=== PATIENT | male | born 1965 ===

== ENCOUNTER → 2019-02-01 | Day surgery (SDC) | payer OTHER ==
[~2019-02-01] MED LIST: CEFTRIAXONE SOD 1 GM/NS 50 ML 50 ML IV ONE; DEXAMETHASONE SOD PHOS INJ 4 MG/ML VIAL ONE; FENTANYL CITRATE/PF 100MCG/2 ML INJ ONE; IOPAMIDOL 610MG/1ML 300 MG/ML VIAL IV ONE; LIDOCAINE HCL 2% LOCAL INJ 5 ML SDV VIAL INJ ONE; MIDAZOLAM HCL 2 MG/2 ML VIAL ONE; ONDANSETRON HCL INJ 2MG/ML 2ML 2 MG/ML VIAL ONE; PROPOFOL IV EMULSION 10 MG/ML 20 ML VIAL ONE; SEVOFLURANE INHAL SOLN 250 ML PEN BTL ONE
--- OUTSIDE RECORDS SUMMARY | 2019-02-01 07:43 | XMS REPORT ---
Author Author 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 Allergies, Adverse Reactions, Alerts This patient has no known allergies or adverse reactions. Medications This patient has no known medications. Results Test Description Test Time Test Comments Text Results Atomic Results Result Comments REFLEX CULTURE, URINE 2018-12-10 12:28:00 Report Text (test code=Report Text) CWJ 2018-12-09 1309 Report Text7 (test code=Report Text7) NO GROWTH WITHIN 24 HOURS Report Text8 (test code=Report Text8) PRELIMINARY REPORT Report Text9 (test code=Report Text9) Report Text10 (test code=Report Text10) PDG 2018-12-10 1228 Report Text11 (test code=Report Text11) NO GROWTH WITHIN 48 HOURS Report Text12 (test code=Report Text12) FINAL REPORT [id number] 06:36:00HEART RATE: 87 bpmRR Interval: 690 msAtrial Rate: 86 msP-R Interval: 150 msP Duration: 105 msP Horizontal [place]: 3 degP Front [place]: 67 degQ Onset: 505 msQRSD Interval: 85 msQT Interval: 352 msQTcB: 424 msQTcF: 398 msQRS Horizontal [place]: 2 degQRS [place]: 27 degI-40 Horizontal [place]: 46 degI-40 Front [place]: 63 degT-40 Horizontal [place]: -18 degT-40 Front [place]: 6 degT Horizontal [place]: 50 degT Wave [place]: 23 degS-T Horizontal [place]: 76 degS-T Front [place]: 58 degECG Severity: - NORMAL ECG -ECG Impression: Sinus rhythmECG Impression: ST elev, probable normal early repol patternLEXISCAN MAK. REST/[id number] 12:29:[address] [id number] IMAGING REPORTPatient Name: Margie HARPER of Service: [id number]: 53 Sex: M Order #: [id number] Room: [address] [place] [address] T3DOB: 1965 X-Ray Number: [id number] Record Number: [id number] Hospital Number: [id number] Physician: Neelam QUINN Physician: KWAKU HAMM -Rest, Lexiscan stress myocardial SPECT scan with left ventricular wallmotion and ejection fraction - 12/09/2018 12:25 PMIndication: Chest Pain.Comparison: None available.Findings:Resting SPECT images were obtained following intravenous injection of 11mCi of Technetium 99m labeled Myoview (Tetrofosmin). The patient underwentpharmacological stress and received 0.4 mg of Lexiscan intravenously. 1minute following injection of Lexiscan, the patient was injected 31.8 mCiof Technetium 99m labeled Myoview intravenously. Gated SPECT images of theheart were then obtained after a suitable delay. SPECT images, leftventricular wall motion, and ejection fraction are reviewed on CodeNgo.Normal radiotracer activity is identified in the myocardium at rest andstress.The resting left ventricular wall motion is normal.The resting left ventricular ejection fraction is 58% and is normal.Impression:1. Unremarkable rest stress myocardial SPECT scan.Electronically Signed By: Tony Kulkarni MD, 12/09/2018 12:27 PMLegally authenticated by VANDA CISNEROS ([facility]) 2018-12-09 12:27:[id number] 07:21:00* Test Item Value Reference Range Comments %CKMB (test code=%MB) 0.6 % CKMB (test code=CKMB) 0.5 NG/ML 0.22-2.4 CK (test code=CK) 81 U/L 55-170 CKINTERP (test code=CKINTERP) NEGATIVE Negative TROPONIN I - [id number] 07:21:00* Test Item Value Reference Range Comments TROP-I (test code=TROP-I) <0.012 ng/ml 0.012-0.033 INTERPRETIVE DATA A TROPONIN OF LESS THAN 0.034 NG/ML IS CONSIDERED NEGATIVE A TROPONIN OF 0.034 - 0.119 NG/ML IS CONSIDERED GRAYZONE A TROPONIN=/> 0.120 NG/ML IS CONSIDERED POSITIVE BMP, BASIC METABOLIC [id number] 07:21:00* Test Item Value Reference Range Comments SODIUM (test code=NA) 137 MMOL/L 137-145 K+ (test code=KSERUM) 4.0 MMOL/L 3.5-5.1 PLEASE NOTE NEW REFERENCE RANGE(S) IN EFFECT EFFECTIVE 03/25/2010 - NEW ANALYZER ([employer] 5600) CHLORIDE (test code=CL) 104 MMOL/L 98-107 CO2 (test code=CO2) 25 MMOL/L 22-30 BUN (test code=BUN) 17 MG/DL 9-20 CREA (test code=CREA) 0.9 MG/DL 0.8-1.5 GLUCOSE (test code=GLUCOSE) 79 MG/DL 70-99 Fasting glucose normal <100 MG/DL- [employer] recommendation CALCIUM (test code=CABLOOD) 8.2 MG/DL 8.4-10.2 GFR (test code=GFR) 113 mL/min/1.73m2 A GFR of >90 mL/min/1.73m2 is considered normal. [id number] 06:23:00* Test Item Value Reference Range Comments WBC (test code=WBC) 11.8 K/UL 3.5-10.9 RBC (test code=RBC) 3.69 M/UL 4.3-5.7 HGB (test code=HGB) 11.9 G/DL 13.0-17.9 HCT (test code=HCT) 35.8 % 38-52 MCV (test code=MCV) 97.0 FL 80-98 MCH (test code=MCH) 32.2 PG 28-32 MCHC (test code=MCHC) 33.2 G/DL 32.5-36.5 RDW (test code=RDW) 13.8 % 11.5-14.5 PLT (test code=PLT) 185 K/UL 150-450 MPV (test code=MPV) 10.7 FL 7.4-10.4 MANDIFF (test code=MANDIFF) NO SCAN (test code=SCAN) NO NEUT% (test code=NEUT%) 79.3 % 40-75 LYMPH% (test code=LYMPH%) 8.9 % 24-44 MONO% (test code=MONO%) 9.8 % 0-13 EOS% (test code=EOS%) 1.0 % 0-4 BASO % (test code=BASO%) 0.3 % 0-2 IG (test code=IG) 0 % 0-1 IG% (test code=IG%) 0.7 % 0-1 IG%=Metamyelocytes, Myelocytes, and Promyelocytes. (Immature neutrophils not including "bands".) > 3% IG indicates risk of sepsis NRBC% (test code=NRBC%) 0 /100 WBC ABS NEUT (test code=NEUT) 9.4 K/UL 1.2-7.2 [id number] 00:04:00* Test Item Value Reference Range Comments %CKMB (test code=%MB) 0.4 % CKMB (test code=CKMB) 0.4 NG/ML 0.22-2.4 CK (test code=CK) 90 U/L 55-170 CKINTERP (test code=CKINTERP) NEGATIVE Negative TROPONIN I - [id number] 00:04:00* Test Item Value Reference Range Comments TROP-I (test code=TROP-I) <0.012 ng/ml 0.012-0.033 INTERPRETIVE DATA A TROPONIN OF LESS THAN 0.034 NG/ML IS CONSIDERED NEGATIVE A TROPONIN OF 0.034 - 0.119 NG/ML IS CONSIDERED GRAYZONE A TROPONIN=/> 0.120 NG/ML IS CONSIDERED POSITIVE TROPONIN I - [id number] 19:11:00* Test Item Value Reference Range Comments TROP-I (test code=TROP-I) <0.012 ng/ml 0.012-0.033 INTERPRETIVE DATA A TROPONIN OF LESS THAN 0.034 NG/ML IS CONSIDERED NEGATIVE A TROPONIN OF 0.034 - 0.119 NG/ML IS CONSIDERED GRAYZONE A TROPONIN=/> 0.120 NG/ML IS CONSIDERED POSITIVE [id number] 19:10:00* Test Item Value Reference Range Comments %CKMB (test code=%MB) 0.4 % CKMB (test code=CKMB) 0.4 NG/ML 0.22-2.4 CK (test code=CK) 96 U/L 55-170 CKINTERP (test code=CKINTERP) NEGATIVE Negative CT ABDOMEN/PELVIS [id number] 14:58:[address] [id number] IMAGING REPORTPatient Name: Margie HARPER of Service: [id number]: 53 Sex: M Order #: [id number] [facility] 1965 [facility] Number: [id number] Record Number: [id number] Hospital Number: [id number] Physician: GALO SWAN TANOrdering Physician: DOTTY SOTOROCEDURE: CT OF THE ABDOMEN AND PELVIS WITHOUT I.V. CONTRASTCOMPARISON: None.INDICATIONS:HematuriaTECHNIQUE: CT images were created without non-ionic intravenous contrastmaterial.FINDINGS:LUNG BASES: Unremarkable. No visible pulmonary or pleural disease.LIVER: Unremarkable. No enlargement, atrophy, abnormal density, or focallesion.BILIA RY: Unremarkable. No duct dilation or calcification.PANCREAS: Unremarkable. No lesion, fluid collection, ductal dilation, oratrophy.SPLEEN: Unremarkable. No enlargement or focal lesion.KIDNEYS: Unremarkable. No mass, obstruction, or calcification.ADRENALS: Unremarkable. No mass or enlargement.AORTA/VASCULAR: Unremarkable. No aneurysm or dissection.BOWEL/MESENTERY: Unremarkable. No vi sible mass, obstruction, or bowelwall thickening. The appendix is within daniel l limits.ABDOMINAL WALL: Unremarkable. No mass or hernia.URINARY BLADDER: The urinary bladder is decompressed. The wall appearssomewhat thickened and there is mild surrounding fat stranding.PELVIC ORGANS: The prostate gland appears to be enlarged measuring 6 cm indiameter. There is suggestion of slight surrounding fat stranding.BONES: Unremarkable. No bone lesion or fracture.OTHER: Negative .IMPRESSION: No evidence of urolithiasis or obstructive uropathy.The urinary bl adder is decompressed but the wall appears thickened withsome surrounding inflam mation suggesting cystitis. There is also suggestionof some slight fat stranding surrounding the prostate gland which mayindicate prostatitis. No abscess or free fluid is seen.Electronically Signed By: Tony Kulkarni MD, 12/08/2018 2:56 PML egally authenticated by VANDA CISNEROS ([facility]) 2018-12-08 14:56:09CKMB 2018-12-08 14:25:00* Test Item Value Reference Range Comments %CKMB (test code=%MB) 0.3 % CKMB (test code=CKMB) 0.3 NG/ML 0.22-2.4 CK (test code=CK) 98 U/L 55-170 CKINTERP (test code=CKINTERP) NEGATIVE Negative TROPONIN [id number] 13:40:00* Test Item Value Reference Range Comments TROPER (test code=TROPER) 0.00 NG/ML 0.0-0.08 [id number] 13:15:00* Test Item Value Reference Range Comments GLUCOSE (test code=URGLU) NEGATIVE MG/DL NEG-100 BILIRUBN (test code=URBILI) SMALL NEGATIVE KETONE (test code=URKET) NEGATIVE MG/DL NEGATIVE BLOOD (test code=URBLD) MODERATE UR PH (test code=URPH) 5.5 5.0-7.5 PROTEIN (test code=URPRO) 100 MG/DL NEGATIVE NITRITES (test code=URNIT) NEGATIVE NEGATIVE UROBILINGEN (test code=URURO) 2.0 EU/DL 0.2-1.0 LEUKOCYT (test code=URLEU) MODERATE NEGATIVE UA COLOR (test code=UA COLOR) DARK YELLOW YELLOW CLARITY (test code=CLARITY) CLOUDY CLEAR SP GRAV (test code=URSPGRAV) 1.039 1.000-1.025 UAMICRO (test code=UAMICRO) YES WBC (test code=URWBC) 239 /HPF 0-5 RBC (test code=URRBC) 13 /HPF 0-2 CASTS (test code=CAST) 4 /LPF 0-3 UR EPI (test code=EPI) 19 /LPF BACTERIA (test code=BACTERIA) NEGATIVE NONE [id number] 13:02:00* Test Item Value Reference Range Comments WBC (test code=WBC) 16.4 K/UL 3.5-10.9 RBC (test code=RBC) 4.41 M/UL 4.3-5.7 HGB (test code=HGB) 14.2 G/DL 13.0-17.9 HCT (test code=HCT) 41.8 % 38-52 MCV (test code=MCV) 94.8 FL 80-98 MCH (test code=MCH) 32.2 PG 28-32 MCHC (test code=MCHC) 34.0 G/DL 32.5-36.5 RDW (test code=RDW) 13.7 % 11.5-14.5 PLT (test code=PLT) 194 K/UL 150-450 MPV (test code=MPV) 10.2 FL 7.4-10.4 MANDIFF (test code=MANDIFF) NO SCAN (test code=SCAN) NO NEUT% (test code=NEUT%) 82.6 % 40-75 LYMPH% (test code=LYMPH%) 8.4 % 24-44 MONO% (test code=MONO%) 7.7 % 0-13 EOS% (test code=EOS%) 0.2 % 0-4 BASO % (test code=BASO%) 0.2 % 0-2 IG (test code=IG) 0 % 0-1 IG% (test code=IG%) 0.9 % 0-1 IG%=Metamyelocytes, Myelocytes, and Promyelocytes. (Immature neutrophils not including "bands".) > 3% IG indicates risk of sepsis NRBC% (test code=NRBC%) 0 /100 WBC ABS NEUT (test code=NEUT) 13.6 K/UL 1.2-7.2 [id number] 12:24:00* Test Item Value Reference Range Comments SODIUM (test code=NA) 139 MMOL/L 137-145 K+ (test code=KSERUM) 3.5 MMOL/L 3.5-5.1 PLEASE NOTE NEW REFERENCE RANGE(S) IN EFFECT EFFECTIVE 03/25/2010 - NEW ANALYZER ([employer] 5600) CHLORIDE (test code=CL) 102 MMOL/L 98-107 CO2 (test code=CO2) 30 MMOL/L 22-30 BUN (test code=BUN) 22 MG/DL 9-20 CREA (test code=CREA) 1.1 MG/DL 0.8-1.5 GLUCOSE (test code=GLUCOSE) 116 MG/DL 70-99 Fasting glucose normal <100 MG/DL- [employer] recommendation CALCIUM (test code=CABLOOD) 9.0 MG/DL 8.4-10.2 TOTPROT (test code=TOTPROT) 7.5 G/DL 6.3-8.2 ALBUMIN (test code=ALBSERUM) 4.2 G/DL 3.5-5.0 BILITOT (test code=BILITOT) 1.6 MG/DL 0.2-1.3 AST (test code=AST) 22 U/L 15-46 PHOSALK (test code=PHOSALK) 86 U/L 38-126 ALT (test code=ALT) 26 U/L 13-69 GFR (test code=GFR) 90 mL/min/1.73m2 A GFR of >90 mL/min/1.73m2 is considered normal. BLOOD [id number] 06:27:00* Test Item Value Reference Range Comments CULTBLD1 (test code=CULTBLD1) CULTBLD1 (test wpoz=[id number]) [facility] 2018-04-09 1354 BLOOD CULTURES HELD FOR 5 DAYS BEFORE FINAL [employer] OF MICROBIOLOGY SUGGESTS TH AT MOST CASES OF BACTEREMIA ARE DETECTED BY USING THREE SETS OF SEPARATELY COLLE CTED BLOOD CULTURES. [facility] 2018-04-09 7167 CONVERSELY, A SINGLE BLOOD CULTURE MAY MISS INTERMITTENTLY OCCURRING BACTEREMIA AND MAKE IT DIFFICULT TO INTERPRET THE CLINICAL SIGNIFICANCE OF CERTAIN ISOLATED ORGANISMS. DJS 2018-04-09 1356 COLLECTION SITE UNSPECIFIED S MS 2018-04-10 436 POSITIVE BLOOD CULTURE GRAM STAIN RESULT GRAM NEGATIVE B ACILLI SEEN ON SMEAR, ID AND SENSITIVITY TO FOLLOW, PRELIMINARY REPORT; RESULTS CALLED/READ BACK BY:NICOLAS/JOAO/0436/ [facility] 2018-04-11 853 2 BLOOD CULTURE BOTTLES WERE COLLECTED. *BOTH BOTTLES ARE POSITIVE FOR GROWTH [facility] 2018-04-11 854 OXIDASE NEGATIVE GRAM NEGATIVE BACILLI ISOLATED (PROBABLE E.COLI) PRELIMINARY REPORT [facility] 2018-04-11 855 ID AND/OR SENSITIVITY TO FOLLOW PRELIMINARY REPORT CULTURE, [id number] 07:58:00* Test Item Value Reference Range Comments CULTURIN (test code=CULTURIN) CULTURIN (test xybc=[id number]) PD 2018-04-10 855 PDG 2018-04-10 856 OXIDASE NEGATIVE GRAM NEGATIVE BACILLI ISO LATED PRELIMINARY REPORT PD 201 03-28-21 857 ID AND/OR SENSITIVITY TO FOLLOW PRELIMINARY REPORT VENOUS BLOOD [id number] 08:59:00* Test Item Value Reference Range Comments SITE (test code=SITE) VENOUS SITE ALLENS (test code=ALLENS) NA O2 EQUIP (test code=O2 EQUIP) NA O2-DEVICE PH (test code=MVPH) 7.42 7.32-7.42 PCO2 (test code=MVPCO2) 32 MMHG 41.0-51.0 PO2 (test code=MVPO2) 64 MMHG MVHCO3 (test code=MVHCO3) 20.8 24.0-28.0 BE (test code=MVBE) -2.9 -2.0-+2.0 THB (test code=MVTHB) 12.1 G/DL 13.5-18 %O2 HB (test code=MV%O2 HB) 92.2 % 40.0-70.0 %COHB (test code=MV%COHB) 2.1 % %MET HB (test code=MV%METHB) 0.8 % 0.4-1.5 BG LAB VENOUS [id number] 08:59:00* Test Item Value Reference Range Comments SITE (test code=SITE) VENOUS SITE BGLACVEN (test code=BGLACVEN) 9.0 mg/dL 6.0-18.0 [id number] 08:23:00* Test Item Value Reference Range Comments SODIUM (test code=NA) 140 MMOL/L 137-145 K+ (test code=KSERUM) 3.7 MMOL/L 3.5-5.1 PLEASE NOTE NEW REFERENCE RANGE(S) IN EFFECT EFFECTIVE 03/25/2010 - NEW ANALYZER ([employer] 5600) CHLORIDE (test code=CL) 109 MMOL/L 98-107 CO2 (test code=CO2) 21 MMOL/L 22-30 BUN (test code=BUN) 21 MG/DL 9-20 CREA (test code=CREA) 0.9 MG/DL 0.8-1.5 GLUCOSE (test code=GLUCOSE) 85 MG/DL 70-99 Fasting glucose normal <100 MG/DL- [employer] recommendation CALCIUM (test code=CABLOOD) 8.7 MG/DL 8.4-10.2 TOTPROT (test code=TOTPROT) 7.1 G/DL 6.3-8.2 ALBUMIN (test code=ALBSERUM) 4.0 G/DL 3.5-5.0 BILITOT (test code=BILITOT) 1.5 MG/DL 0.2-1.3 AST (test code=AST) 42 U/L 15-46 PHOSALK (test code=PHOSALK) 85 U/L 38-126 ALT (test code=ALT) 38 U/L 13-69 GFR (test code=GFR) 113 mL/min/1.73m2 A GFR of >90 mL/min/1.73m2 is considered normal. [id number] 08:23:00* Test Item Value Reference Range Comments MG (test code=MG) 1.7 mg/dL 1.6-2.3 CHEST XR 2 [id number] 08:09:[address] [id number] IMAGING REPORTPatient Name: Margie HARPER of Service: [id number]: 49 Sex: M Order #: [id number] Room: ERDOB: 1969 X-Ray Number: [id number] Record Number: [id number] Hospital Number: [id number] Physician: SIMON TOBAROrdering Physician: GALO SWAN XR 2 VIEWS 04/09/2018 8:04 AMHistory: Cough and fever, shortness of breathComparisons: None Available.FINDINGS:Heart size is normal.There is no focal lung consolidation.There is no definite pleural effusion or pneumothorax identified.IMPRESSION:No acute cardiopulmonary process.Electronically Signed By: Sesar Wilkerson M.D., 04/09/2018 8:06 AMLegally authenticated by ERJI KIRBY 2018-04-09 08:06:[id number] 07:59:00* Test Item Value Reference Range Comments GLUCOSE (test code=URGLU) NEGATIVE MG/DL NEG-100 BILIRUBN (test code=URBILI) NEGATIVE NEGATIVE KETONE (test code=URKET) >=80 MG/DL NEGATIVE BLOOD (test code=URBLD) SMALL UR PH (test code=URPH) 6.0 5.0-7.5 PROTEIN (test code=URPRO) NEGATIVE MG/DL NEGATIVE NITRITES (test code=URNIT) NEGATIVE NEGATIVE UROBILINGEN (test code=URURO) 1.0 EU/DL 0.2-1.0 LEUKOCYT (test code=URLEU) SMALL NEGATIVE UA COLOR (test code=UA COLOR) YELLOW YELLOW CLARITY (test code=CLARITY) CLEAR CLEAR SP GRAV (test code=URSPGRAV) 1.025 1.000-1.025 UAMICRO (test code=UAMICRO) YES WBC (test code=URWBC) 100 /HPF 0-5 RBC (test code=URRBC) 2 /HPF 0-2 CASTS (test code=CAST) 1 /LPF 0-3 UR EPI (test code=EPI) 13 /LPF BACTERIA (test code=BACTERIA) SMALL NONE [id number] 07:57:00* Test Item Value Reference Range Comments WBC (test code=WBC) 8.8 K/UL 3.5-10.9 RBC (test code=RBC) 4.15 M/UL 4.3-5.7 HGB (test code=HGB) 13.5 G/DL 13.0-17.9 HCT (test code=HCT) 39.7 % 38-52 MCV (test code=MCV) 95.7 FL 80-98 MCH (test code=MCH) 32.5 PG 28-32 MCHC (test code=MCHC) 34.0 G/DL 32.5-36.5 RDW (test code=RDW) 14.1 % 11.5-14.5 PLT (test code=PLT) 172 K/UL 150-450 MPV (test code=MPV) 10.5 FL 7.4-10.4 MANDIFF (test code=MANDIFF) NO SCAN (test code=SCAN) NO NEUT% (test code=NEUT%) 95.3 % 40-75 LYMPH% (test code=LYMPH%) 3.2 % 24-44 MONO% (test code=MONO%) 0.9 % 0-13 EOS% (test code=EOS%) 0.1 % 0-4 BASO % (test code=BASO%) 0.2 % 0-2 IG (test code=IG) 0 % 0-1 IG% (test code=IG%) 0.3 % 0-1 IG%=Metamyelocytes, Myelocytes, and Promyelocytes. (Immature neutrophils not including "bands".) > 3% IG indicates risk of sepsis ABS NEUT (test code=NEUT) 8.4 K/UL 1.2-7.2 INFLUENZA [id number] 07:56:00* Test Item Value Reference Range Comments FLU A (test code=FLU A) NEGATIVE NEGATIVE FLU B (test code=FLU B) NEGATIVE NEGATIVE FLU INTERNAL POSITIVE CNTRL (test code=FLU IPC) PASS PASS INFLUENZA LOT # (test code=FLULOT) [id number] INFLUENZA EXPIRATION DATE (test code=FLUEXP) 5-20 SPINE LUMBAR [id number] 17:22:[address] [id number] IMAGING REPORTPatient Name: Margie HARPER of Service: [id number]: 51 Sex: M Order #: [id number] [facility] 1965 [facility] Number: [id number] Record Number: [id number] Hospital Number: [id number] Physician: RENATO BAR -Ordering Physician: Nimco GARCIA spine 5 views 4:43 PMHistory: Back pain.Findings:There is very mild degenerative change ventrally at L4-5 and L5-S1 withoutfracture, subluxation or bony destruction.Disc space heights are preserved.Impression:Very mild degenerative changes of the lumbar spine as discussed above.Electronically Signed By: Sesar Wilkerson M.D., 10/04/2016 5:19 PMLegally authenticated by REJI KIRBY 2016-10-04 17:19:[id number] 16:18:00* Test Item Value Reference Range Comments GLUCOSE (test code=URGLU) NEGATIVE MG/DL NEG-100 BILIRUBN (test code=URBILI) NEGATIVE NEGATIVE KETONE (test code=URKET) NEGATIVE MG/DL NEGATIVE BLOOD (test code=URBLD) NEGATIVE UR PH (test code=URPH) 6.5 5.0-7.5 PROTEIN (test code=URPRO) NEGATIVE MG/DL NEGATIVE NITRITES (test code=URNIT) NEGATIVE NEGATIVE UROBILINGEN (test code=URURO) 1.0 EU/DL 0.2-1.0 LEUKOCYT (test code=URLEU) NEGATIVE NEGATIVE UA COLOR (test code=UA COLOR) YELLOW YELLOW CLARITY (test code=CLARITY) CLEAR CLEAR SP GRAV (test code=URSPGRAV) 1.026 1.000-1.025 UAMICRO (test code=UAMICRO) NO
[2019-02-01 10:50] VITALS: BP 152/92
--- NOTE | 2019-02-03 01:05 | Operative Report ---
DATE OF PROCEDURE: 02/01/2019 SURGEON: Som Abbott MD PREOPERATIVE DIAGNOSES: 1. Urethral stricture disease. 2. Gross hematuria. POSTOPERATIVE DIAGNOSES: 1. Urethral stricture disease. 2. Gross hematuria. PROCEDURES: 1. Retrograde urethrogram. 2. Cystourethroscopy with urethral calibration and dilation of stricture. ANESTHESIA: General. ESTIMATED BLOOD LOSS: Minimal. COMPLICATIONS: None. INDICATIONS: Mr. Nolan is a very pleasant 53-year-old male with history of gross hematuria, found to have a dense urethral stricture. He and I had a long discussion about alternatives, risks, and benefits nothing, dilation, dviu, open repair, alternatives, risks, and benefits of the procedure. He elects to proceed PROCEDURE IN DETAIL: After informed consent was obtained, the patient was taken to the operative suite, placed supine on the operating table, underwent general anesthesia by Anesthesia service, placed in the dorsal lithotomy position, sterilely prepped and draped in standard fashion for cystoscopy. Retrograde urethrogram performed revealing dense bulbar urethral stricture, pinpoint in nature that is seen in the radiographic images #1 and #2. The fossa was dilated, it was calibrated at 16-Cypriot, dilated to 24-Cypriot. A 21-Cypriot cystoscope was inserted per urethra. The scope was advanced to the level of the bulbar urethral stricture. This was approximately the size of the 4-Cypriot filiform. With moderate difficulty, it was catheterized and seen to coil in the bladder under fluoroscopy. Utilizing the followers the urethra was dilated to 18-Cypriot and a 16-Cypriot Councill tip catheter was inserted in the bladder. Retrograde cystogram was performed confirming catheter adequately positioned and bladder was drained. The patient was awakened from anesthesia and transported to recovery room in excellent condition. Supervision of fluoroscopy, retrograde urethrogram. I was present and supervised fluoroscopy. There was no radiologist present . Retrograde urethrogram was performed revealing a very dense bulbar urethral stricture further cystoscopic examination showed multiple areas of urethral stricture disease. MD CIARA Meyer/MODL /[id number] [facility]ITALParam
== END | disposition home or self-care (01) ==
LOC: OR 07:36
PROVIDERS: ATTEND Urology
DX: N35.912 Unspecified bulbous urethral stricture, male (principal); R97.20 Elevated prostate specific antigen [PSA]; N39.0 Urinary tract infection, site not specified; N40.1 Benign prostatic hyperplasia with lower urinary tract symptoms; N13.8 Other obstructive and reflux uropathy; R39.14 Feeling of incomplete bladder emptying; N43.3 Hydrocele, unspecified; G89.29 Other chronic pain; Z01.810 Encounter for preprocedural cardiovascular examination; Z79.82 Long term (current) use of aspirin
CPT/HCPCS: 52281; 74450; 93005; C1758; J0696; J1100; J2001; J2250; J2405; J2704; Q9967